=== PATIENT | male | born 1940 | race Caucasian/White ===

== ENCOUNTER 2017-10-16 23:25 | Inpatient (IN) | payer OTHER, MEDICARE ==
[~2017-10-16] VITALS: Ht 160 cm; Wt 62.6 kg
[~2017-10-16 23:25] MED LIST: ACET-1194 PO; ACET-8386 PO; ASPI81CT89 PO; DOCU-299 PO; FINA5TAB5 PO; HYDR-699 PO; METF500T PO; OMEP20TC12 PO; TAMS0.4C96 PO; YOUNGEVITY PO
[2017-10-16 23:44] VITALS: BP 126/65
--- NOTE | 2017-10-16 23:53 | NUR ---
TO ER BED 12
--- NOTE | 2017-10-16 23:55 | NUR ---
PATIENT IS A 77 Y/O MALE WHO PRESENTS TO THE ED C/O RECTAL BLEEDING. PT STATES, "I CAN'T GO TO THE BATHROOM." PT REPORTS 7/10 ACHING RECTAL PAIN THAT DOES NOT RADIATE. PT DENIES CP, SOB, N/V/D. REPORTS CONSTIPATION. PT AAOX4, RR EVEN/UNLABORED. PT REPOSITIONED FOR COMFORT, BED IN LOWEST POSITION. ER MD DR. CISNEROS NOTIFIED. WILL CONTINUE TO MONITOR.
[2017-10-17 00:27] LABS: HEMATOCRIT 48.4 % (36-52); HEMOGLOBIN 15.9 g/dL (12.0-18.0); MEAN CORPUSCULAR HEMOGLOBIN 30 pg (27-31); MEAN CORPUSCULAR HGB CONC 33 g/dL (33-37); MEAN CORPUSCULAR VOLUME 91 fL (80-94); PLATELET COUNT (AUTO) 210 K/uL (140-450); RED BLOOD CELL COUNT(AUTO) 5.32 MIL/uL (4.20-6.10); RED CELL DISTRIBUTION WIDTH 12.8 % (11.6-13.7); WHITE BLOOD COUNT (AUTO) 14.6 K/uL (4.8-10.8)
[2017-10-17] MEDS ORDERED: NACL 0.9% 1,000 ML IV ONE (00:35)
[2017-10-17 00:37] LABS: ANION GAP 14.1 (8-16); CARBON DIOXIDE 28.9 mmol/L (21-32); CHLORIDE 101 mmol/L (98-107); CREATININE 1.7 mg/dL (0.7-1.3); GLUCOSE 183 mg/dL (74-106); SODIUM SERUM 140 mmol/L (136-145); UREA NITROGEN, BLOOD 21 mg/dL (7-18)
[2017-10-17 00:38] LABS: LYMPHOCYTES % (MANUAL) 3 % (20-46); MONOCYTES % (MANUAL) 2 % (5-12)
[2017-10-17 00:44] LABS: ALBUMIN 3.9 g/dL (3.4-5.0); ASPARTATE AMINOTRANSFERASE 20 U/L (15-37)
--- NOTE | 2017-10-17 01:00 | NUR ---
CHAPERONED DR. CISNEROS FOR RECTAL EXAM, VIVEK ASHTON AT BEDSIDE.
[2017-10-17 01:34] LABS: APPEARANCE,URINE CLOUDY (CLEAR); BILIRUBIN,URINE NEGATIVE (NEGATIVE); BLOOD, URINE 2+ (NEGATIVE); COLOR,URINE YELLOW (YELLOW); LEUKOCYTE ESTERASE ,URINE NEGATIVE (NEGATIVE); NITRITE, URINE NEGATIVE (NEGATIVE); UGLUCOSE NEGATIVE (NEGATIVE)
[2017-10-17 01:51] LABS: RBC,URINE 11-20 (MOD) /HPF (0-5)
--- NOTE | 2017-10-17 01:54 | NUR ---
PATIENT RESTING AT THIS TIME. AND GRANDDAUGHTER AT BEDSIDE.
[2017-10-17] MEDS ORDERED: cefTRIAXone 1,000 MG VIAL ONE (02:04)
[2017-10-17] MEDS ORDERED: LEVOFLOXACIN 750 MG/D5W PREMIX 150 ML IV ONE (02:30)
--- NOTE | 2017-10-17 03:00 | NUR ---
NOTED REDDENED AND IRRITATED VEIN AT R HAND 18. IV REMOVED. SITE INTACT. WARM COMPRESS APPLIED. ER MD DR. CISNEROS MADE AWARE.
[2017-10-17] MEDS ORDERED: diphenhydrAMINE 50 MG/ML VIAL IVP ONE (03:30)
[2017-10-17] MEDS ORDERED: NACL 0.9% 1,000 ML IV SCH (03:33)
[2017-10-17] MEDS ORDERED: HYDROcodone/APAP 7.5/325 MG 1 TAB PO PRN (03:35)
[2017-10-17] MEDS ORDERED: ACETAMINOPHEN 325 MG TAB PO PRN (03:35)
[2017-10-17] MEDS ORDERED: ONDANSETRON 4 MG/2 ML VIAL IVP PRN (03:35)
[2017-10-17 04:01] LABS: PROTHROMBIN TIME 10.8 secs (10.8-13.4)
[2017-10-17 04:07] LABS: FREE T4 (FREE THYROXINE) 0.95 ng/dL (0.76-1.46); MAGNESIUM 2.4 mg/dL (1.8-2.4); PHOSPHORUS 3.3 mg/dL (2.5-4.9); THYROID STIMULATING HORMONE 1.36 uIU/mL (0.34-3.74)
--- NOTE | 2017-10-17 04:13 | NUR ---
Patient will be admitted to care of DR. SAUCEDO. Admited to TELE OBS. Will go to room 112B. Belongings list completed. Report to LORENZO ASHTON.
[2017-10-17] MEDS ORDERED: DEXTROSE 50% 50 ML SYR IVP PRN ×2 (04:30→23:30)
[2017-10-17] MEDS ORDERED: INSULIN LISPRO SLIDING SCALE 100 UNITS/ML VIAL SUBQ PRN ×2 (04:30→23:30)
--- NOTE | 2017-10-17 04:30 | NUR ---
PT ARRIVED VIA GURNEY. RECEIVED REPORT FROM ER NURSE. PT IS TAMAZIGHT SPEAKING, ALERT/ORIENTED X4, PT IS ON ROOM AIR. 20G IV TO LEFT HAND, SALINE LOCKED. PT AMBULATES BUT GAIT IS A BIT WEAK. PT SKIN IS INTACT. UPDATED BOARD. PT STATES HE WANTS TO GO TO RESTROOM AND GOES IN. PT IN STABLE CONDITION, NO SIGNS OF DISTRESS NOTED. BED IN LOWEST POSITION, CALL LIGHT WITHIN REACH. WILL CONTINUE TO MONITOR.
--- NOTE | 2017-10-17 04:55 | NUR ---
PT STILL IN RESTROOM, UNABLE TO TAKE VITAL SIGNS DUE TO FACT.
--- NOTE | 2017-10-17 05:00 | NUR ---
PT BLOOD PRESSURE IS 175/92, INFORMED DR JONES, HE SAID HE WOULD FIGURE OUT WHAT TO DO WITH MEDICATIONS.
--- NOTE | 2017-10-17 05:25 | NUR ---
DR JONES NOW TAKING PT HISTORY AND PERFORMING EXAM.
[2017-10-17 06:12] VITALS: BP 175/86
[2017-10-17] MEDS ORDERED: BISACODYL 5 MG TABEC PO SCH ×3 (06:45→23:00)
[2017-10-17] MEDS: BLOOD GLUCOSE MONITORING 1 DEV DEV FS SCH ×4 (06:46→21:00)
[2017-10-17] MEDS ORDERED: HYDROcodone/APAP 5/325 MG 1 TAB TAB PO SCH (06:50)
--- NOTE | 2017-10-17 07:20 | NUR ---
RECEIVED PATIENT FROM NIGHTSHIFT NURSE AT BEDSIDE. PATIENT IS AWAKE AT THIS TIME. PATIENT SHOWS NO SIGNS OF PAIN AT THIS TIME. PATIENT'S RESPIRATIONS ARE EVEN AND SYMMETRICAL, AND UNLABORED. INSTRUCTED PATIENT TO CALL IF HE NEEDS HELP WITH ANYTHING. CALL LIGHT WITHIN REACH OF PATIENT. IV NOTED ON L HAND 20 G WITH 50 ML OF NORMAL SALINE INFUSING. UPDATED BOARD IN PATIENTS ROOM WITH CONTACT INFORMATION. WILL CONTINUE TO MONITOR PATIENT.
--- NOTE | 2017-10-17 07:31 | NUR ---
ENDORSED PT IN STABLE CONDITION TO DAY SHIFT NURSE FOR CONTINUITY OF CARE.
[2017-10-17 08:00] VITALS: BP 132/93
[2017-10-17] MEDS ORDERED: ACETAMINOPHEN EXTRA STRENGTH 500 MG TAB PO PRN (08:18)
[2017-10-17] MEDS ORDERED: DOCUSATE SODIUM 100 MG GELCAP PO PRN (08:19)
[2017-10-17] MEDS ORDERED: METOPROLOL SUCCINATE 50 MG TABER PO SCH (09:00)
[2017-10-17] MEDS ORDERED: [UNRECOGNIZED DRUG - OTHER] PO SCH (09:00)
[2017-10-17] MEDS ORDERED: NON-FORMULARY ITEM (Omeprazole (Omeprazole) 1 TAB) PO SCH (09:00)
[2017-10-17] MEDS ORDERED: ASPIRIN 81 MG TAB.CHEW PO SCH (09:00)
--- NOTE | 2017-10-17 09:06 | NUR ---
PATIENT HAS BEEN SCREENED AND CATEGORIZED HIGH NUTRITION RISK. PATIENT WILL BE SEEN WITHIN 1-2 DAYS OF ADMISSION. 10/17/18-10/18/[address]
[2017-10-17] MEDS: FINASTERIDE 5 MG TAB PO SCH (09:14)
[2017-10-17] MEDS: PANTOPRAZOLE 40 MG TABEC PO SCH (09:14)
[2017-10-17] MEDS: DOCUSATE SODIUM 100 MG GELCAP PO SCH ×2 (09:15→22:28)
[2017-10-17] MEDS: TAMSULOSIN 0.4 MG CAP PO SCH (09:15)
[2017-10-17] MEDS: HYDROCHLOROTHIAZIDE 25 MG TAB PO SCH (09:16)
--- NOTE | 2017-10-17 10:00 | NUR ---
PATIENT RESTING IN BED AT THIS TIME. PATIENT USING URINAL TO VOID. NO SIGNS OF RESPIRATORY DISTRESS OR RESPIRATORY DEPRESSION. WILL CONTINUE TO MONITOR PATIENT.
[2017-10-17 12:00] VITALS: BP 139/73
--- NOTE | 2017-10-17 12:00 | NUR ---
PATIENT IS RESTING AT THIS TIME. PATIENT'S FAMILY IS AT BEDSIDE. NO SIGNS OF PAIN OR RESPIRATORY DISTRESS OR RESPIRATORY DEPRESSION. WILL CONTINUE TO MONITOR PATIENT.
[2017-10-17 12:33] LABS: HEMOGLOBIN 16.6 g/dL (12.0-18.0); LYMPHOCYTES % (AUTO) 11.4 % (20.5-51.1); MEAN CORPUSCULAR HEMOGLOBIN 30 pg (27-31); MEAN CORPUSCULAR HGB CONC 33 g/dL (33-37); MEAN CORPUSCULAR VOLUME 92 fL (80-94); NEUTROPHILS % (AUTO) 79.1 % (42.2-75.2); PLATELET COUNT (AUTO) 195 K/uL (140-450); RED BLOOD CELL COUNT(AUTO) 5.52 MIL/uL (4.20-6.10); RED CELL DISTRIBUTION WIDTH 12.8 % (11.6-13.7); WHITE BLOOD COUNT (AUTO) 11.6 K/uL (4.8-10.8)
[2017-10-17 12:34] LABS: BASOPHILS # (AUTO) 0.5 K/uL (0.00-0.22); BASOPHILS % (AUTO) 4.7 % (0.0-2.0); LYMPHOCYTES # (AUTO) 1.3 K/uL (2.0-11.5); MONOCYTES # (AUTO) 0.6 K/uL (0.8-1.0); MONOCYTES % (AUTO) 4.8 % (1.7-9.3); NEUTROPHILS # (AUTO) 9.2 K/uL (1.8-7.7)
--- NOTE | 2017-10-17 12:48 | NUR ---
FAXED INITIAL REVIEW TO [facility] [phone] PHONE [phone] X JO ANN Burris
--- NOTE | 2017-10-17 13:50 | NUR ---
PATIENT AWAKE AT THIS TIME. NO SIGNS OF PAIN AT THIS TIME. WILL CONTINUE TO MONITOR PATIENT.
--- NOTE | 2017-10-17 14:52 | NUR ---
10/17/2017 RD INITIAL ASSESSMENT COMPLETED PLEASE REFER TO NUTRITION ASSESSMENT UNDER CARE ACTIVITY FOR ESTIMATED NUTRITIONAL NEEDS. CONTINUE ANTIHYPERGLYCEMIC MEDS AND CCHO 60 GM DIET FOR GLUCOSE CONTROL. RD TO FOLLOW-UP IN 2-3 DAYS PATIENT IS HIGH RISK. FAUSTO AGUILAR, RD
--- NOTE | 2017-10-17 15:00 | NUR ---
PATIENT IS ASLEEP AT THIS TIME. BREATHING IS SYMMETRICAL, EVEN, AND UNLABORED. WILL CONTINUE TO MONITOR PATIENT.
[2017-10-17 16:00] VITALS: BP 117/58
[2017-10-17] MEDS ORDERED: MAGNESIUM CITRATE 300 ML BTL PO SCH ×2 (17:30→23:00)
--- NOTE | 2017-10-17 17:30 | NUR ---
PATIENT IS AWAKE WITH BREATHING EVEN AND UNLABORED. NO SIGNS OF PAIN. WILL CONTINUE TO MONITOR PATIENT.
--- NOTE | 2017-10-17 19:22 | NUR ---
PATIENT RECEIVED 300 ML OF NORMAL SALINE. GAVE REPORT TO NIGHTSHIFT NURSE AT BEDSIDE. ENDORSED CARE TO NURSE. PATIENT IS IN STABLE CONDITION.
--- NOTE | 2017-10-17 19:23 | NUR ---
RECEIVED HANDOFF REPORT FROM AM RN. PATIENT A&OX4. PATIENT DENIES PAIN. PATIENT RESTING IN BED. IV SITE PATENT AND INTACT. NO SIGNS OR SYMPTOMS OF ACUTE DISTRESS NOTED. SAFETY MEASURES ENSURED. CALL LIGHT WITHIN REACH. WILL CONTINUE TO MONITOR.
[2017-10-17 20:00] VITALS: BP 109/53
[2017-10-17] MEDS ORDERED: DOCUSATE SODIUM 100 MG GELCAP PO SCH (22:15)
--- NOTE | 2017-10-17 22:15 | NUR ---
PM MEDSD GIVEN WITH EDUCATION. PATIENT TOLERATED WELL. NO SIGNS OR SYMPTOMS OF ACUTE DISTRESS NOTED. CALL LIGHT WITHIN REACH. WILL CONTINUE TO MONITOR.
[2017-10-17] MEDS: CLOTRIMAZOLE 1% 30 GM CRM TUBE TP SCH (22:36)
[2017-10-18] VITALS: BP 119/72
[2017-10-18 04:00] VITALS: BP 108/63
[2017-10-18 06:04] LABS: HEMOGLOBIN 16.3 g/dL (12.0-18.0); MEAN CORPUSCULAR HEMOGLOBIN 30 pg (27-31); MEAN CORPUSCULAR HGB CONC 33 g/dL (33-37); MEAN CORPUSCULAR VOLUME 92 fL (80-94); PLATELET COUNT (AUTO) 197 K/uL (140-450); RED BLOOD CELL COUNT(AUTO) 5.45 MIL/uL (4.20-6.10); RED CELL DISTRIBUTION WIDTH 12.7 % (11.6-13.7)
[2017-10-18 06:16] LABS: ANION GAP 13.3 (8-16); CARBON DIOXIDE 28.5 mmol/L (21-32); CHLORIDE 102 mmol/L (98-107); CREATININE 1.6 mg/dL (0.7-1.3); GLUCOSE 115 mg/dL (74-106); POTASSIUM 3.8 mmol/L (3.5-5.1); SODIUM SERUM 140 mmol/L (136-145); UREA NITROGEN, BLOOD 18 mg/dL (7-18)
[2017-10-18 06:19] LABS: MAGNESIUM 2.7 mg/dL (1.8-2.4); PHOSPHORUS 4.1 mg/dL (2.5-4.9)
[2017-10-18] MEDS: BLOOD GLUCOSE MONITORING 1 DEV DEV FS SCH ×2 (06:35→11:30)
[2017-10-18 06:41] LABS: LYMPHOCYTES % (MANUAL) 14 % (20-46); MONOCYTES % (MANUAL) 3 % (5-12)
[2017-10-18] MEDS ORDERED: MIDAZOLAM 2 MG/2 ML VIAL ONE ×2 (06:52)
[2017-10-18] MEDS ORDERED: fentaNYL 0.05 MG/ML VIAL ONE (06:52)
[2017-10-18] MEDS ORDERED: diphenhydrAMINE 50 MG/ML VIAL ONE (06:52)
--- NOTE | 2017-10-18 07:11 | NUR ---
PATIENT OFF UNIT TO OR
--- NOTE | 2017-10-18 07:30 | NUR ---
ENDORSED PLAN OF CARE TO AM RN. PATIENT IN STABLE.
--- NOTE | 2017-10-18 07:31 | NUR ---
RECEIVED REPORT FROM PERSONAL INJURY ATTORNEY NURSE IRVING FOR CONTINUITY OF CARE. PT OFF UNIT FOR COLONOSCOPY. UPDATED BOARD.
[2017-10-18 08:00] VITALS: BP 124/48
--- NOTE | 2017-10-18 08:00 | NUR ---
PT BACK FROM COLONOSCOPY. RECEIVED REPORT FROM RN. PT IN STABLE CONDITION.
[2017-10-18] MEDS ORDERED: MIDAZOLAM 2 MG/2 ML VIAL IVP ONE (08:30)
[2017-10-18] MEDS ORDERED: fentaNYL 0.05 MG/ML VIAL IVP ONE (08:30)
[2017-10-18] MEDS ORDERED: TAMSULOSIN 0.4 MG CAP PO SCH (08:40)
[2017-10-18] MEDS ORDERED: PANTOPRAZOLE 40 MG TABEC PO SCH (08:40)
[2017-10-18] MEDS ORDERED: LISINOPRIL 20 MG TAB PO SCH ×2 (09:00→09:15)
[2017-10-18] MEDS ORDERED: LACTOBACILLUS RHAMNOSUS GG 1 EACH CAP PO SCH ×2 (09:00→11:00)
[2017-10-18] MEDS: PANTOPRAZOLE 40 MG TABEC PO SCH (09:14)
[2017-10-18] MEDS: TAMSULOSIN 0.4 MG CAP PO SCH (09:15)
[2017-10-18] MEDS ORDERED: FINASTERIDE 5 MG TAB PO SCH (09:15)
[2017-10-18] MEDS ORDERED: DOCUSATE SODIUM 100 MG GELCAP PO SCH (09:15)
[2017-10-18] MEDS ORDERED: HYDROCHLOROTHIAZIDE 25 MG TAB PO SCH (09:15)
[2017-10-18] MEDS: DOCUSATE SODIUM 100 MG GELCAP PO SCH (09:37)
[2017-10-18] MEDS: HYDROCHLOROTHIAZIDE 25 MG TAB PO SCH (09:38)
[2017-10-18] MEDS: FINASTERIDE 5 MG TAB PO SCH (09:38)
[2017-10-18] MEDS: CLOTRIMAZOLE 1% 30 GM CRM TUBE TP SCH (09:40)
[2017-10-18] MEDS: LIDOCAINE 2% 100 MG/5 ML UJET TP SCH ×2 (11:00→13:00)
[2017-10-18 12:00] VITALS: BP 130/67
--- NOTE | 2017-10-18 13:00 | NUR ---
PT GOT UP OUT OF BED WITH P/T. AMBULATED WITH STEADY GAIT USING FWW.
[2017-10-18] MEDS ORDERED: LACT10CA PO (13:01)
[2017-10-18] MEDS ORDERED: CALC625T27 PO (13:01)
[2017-10-18] MEDS ORDERED: NITR2OIN30 TP (13:06)
[2017-10-18] MEDS ORDERED: [UNRECOGNIZED DRUG - OTHER] TP (13:06)
[2017-10-18] MEDS ORDERED: SULF-58 PO (13:15)
--- NOTE | 2017-10-18 15:00 | NUR ---
STOPPED IV OF NS INFUSION. D/C IV TO L HAND 20G. IV CATHETER TIP INTACT. APPLIED DRESSING AND PRESSURE TO SITE NOT BLEEDING NOTED.
--- NOTE | 2017-10-18 15:05 | NUR ---
PT D/C TO GO HOME. GAVE D/C FORMS, INSTRUCTIONS, RX, FOLLOW UP APPOINTMENT, AND LABS TO PT AND PT'S DAUGHTER KIM WHO SIGNED FORMS. KIM AND PT VERBALIZED UNDERSTANDING. REMOVED TELE MONITOR AND ID BANDS. PT CHANGED IN OWN CLOTHES AND LEFT WITH ALL PERSONAL BELONGINGS. PT LEFT UNIT VIA WHEELCHAIR ACCOMPANIED BY STUDENT AND FAMILY MEMBERS. PT LEFT IN STABLE CONDITION.
[2017-10-18] MEDS ORDERED: NITROGLYCERIN 2% 1 GM PKT TP SCH (21:00)
--- NOTE | 2017-10-22 13:59 | NUR ---
Faxed discharge summary to [facility] [phone]
== END 2017-10-18 15:05 | disposition home or self-care (01) | DRG 720 ==
LOC: MED 23:25 → MTU 10-17 03:33 → UNDOADMOB 10-17 03:33 → MTU 10-17 03:33 → UNDOADMOB 10-17 03:58 → MTU 10-17 03:58 → INTOOBSV 10-17 09:58 → OBSVTOIN 10-17 09:58
PROVIDERS: ADMIT Student in an Organized Health Care Education/Training Program; ATTEND Student in an Organized Health Care Education/Training Program
PROC: 0DJD8ZZ Inspection of Lower Intestinal Tract, Via Natural or Artificial Opening Endoscopic (ICD-10-PCS; principal; 2017-10-18 07:15)
DX: A41.9 Sepsis, unspecified organism (principal); N17.0 Acute kidney failure with tubular necrosis; K85.90 Acute pancreatitis without necrosis or infection, unspecified; D68.59 Other primary thrombophilia; E86.0 Dehydration; E11.51 Type 2 diabetes mellitus with diabetic peripheral angiopathy without gangrene; C18.9 Malignant neoplasm of colon, unspecified; I10 Essential (primary) hypertension; K21.9 Gastro-esophageal reflux disease without esophagitis; K59.00 Constipation, unspecified; N39.0 Urinary tract infection, site not specified; K57.90 Diverticulosis of intestine, part unspecified, without perforation or abscess without bleeding; K60.2 Anal fissure, unspecified; Z88.1 Allergy status to other antibiotic agents; Z79.84 Long term (current) use of oral hypoglycemic drugs; Z79.82 Long term (current) use of aspirin; Z79.899 Other long term (current) drug therapy; Z90.49 Acquired absence of other specified parts of digestive tract; N40.1 Benign prostatic hyperplasia with lower urinary tract symptoms; R33.8 Other retention of urine
CPT/HCPCS: 36415; 70450; 71045; 80048; 80053; 81001; 82140; 82150; 82272; 82948; 83036; 83605; 83690; 83735; 83880; 84100; 84439; 84443; 84484; 85025; 85610; 85730; 87040; 87081; 87086; 87186; 93005; 93925; 93970; 96361; 96365; 96367; 96375; 97110; 97116; 97140; 97530; 99285; C1758; J0696; J1200; J1815; J1956; J2250; J3010; J7030; J7060; Q0092

== ENCOUNTER 2019-04-17 22:41 | Emergency (ER) | payer MEDICARE, OTHER ==
[~2019-04-17] VITALS: Ht 165.1 cm; Wt 60.8 kg
[~2019-04-17 22:41] MED LIST changes: -ACET-1194 PO; -ACET-8386 PO; +ASPI-1718 PO; -ASPI81CT89 PO; +CALC625T27 PO; +LACT10CA PO; +NITR2OIN30 TP; +SULF-58 PO; +[UNRECOGNIZED DRUG - OTHER] TP
[2019-04-17 22:45] VITALS: BP 146/82
--- NOTE | 2019-04-17 22:50 | NUR ---
TO LOBBY A/W BED AMBULATORY
--- NOTE | 2019-04-18 00:12 | NUR ---
79 Y/O MALE PRESENTS TO ED WITH C/O RIGHT ARM, RIGHT RIB, AND RIGHT KNEE PAIN. PT STATES FALLING WHILE GETTING OFF THE BUS TODAY. DENIES HITTING HEAD. NO BLOOD THINNERS. 6/10 TOLLERABLE PAIN. NO REDNESS, NO BRUSING, NO DEFORMITY NOTED. CMS INTACT IN ALL 4 EXTREMITIES. AMBULATES WITH STRONG STEADY GAIT. FAMILY AT BEDSIDE. VSS. ER MD AWARE. CONTINUE TO MONITOR.
--- NOTE | 2019-04-18 00:12 | NUR ---
PT TAKEN TO BED 7
[2019-04-18] MEDS ORDERED: ACETAMINOPHEN 325 MG TAB PO ONE (01:55)
[2019-04-18 03:48] VITALS: BP 123/77
--- NOTE | 2019-04-18 03:48 | NUR ---
PT DISCHARGED WITH PAPERWORK. RX LIDODERM TRANSDERMAL PATCH. EDUCATED PT REGARDING MEDICATION AND S/E. EDUCATED PT REGARDING D/C DIAGNOSIS. PT VERBALIZED UNDERSTANDING OF TEACHING. TOLD PT TO FOLLOW UP WITH PCP AND WHEN TO RETURN TO ED. PT VSS, DENIES ANY PAIN. ALL QUESTIONS ANSWERED.
== END 2019-04-18 03:48 | disposition home or self-care (01) ==
LOC: MED 22:41
DX: S20.211A Contusion of right front wall of thorax, initial encounter (principal); M25.561 Pain in right knee; E11.9 Type 2 diabetes mellitus without complications; K21.9 Gastro-esophageal reflux disease without esophagitis; I10 Essential (primary) hypertension; Z79.82 Long term (current) use of aspirin; Z79.84 Long term (current) use of oral hypoglycemic drugs; Z79.899 Other long term (current) drug therapy; Z88.1 Allergy status to other antibiotic agents; Z85.038 Personal history of other malignant neoplasm of large intestine; Z85.46 Personal history of malignant neoplasm of prostate; W01.0XXA Fall on same level from slipping, tripping and stumbling without subsequent striking against object, initial encounter; Y93.89 Activity, other specified; Y92.811 Bus as the place of occurrence of the external cause; Y99.8 Other external cause status
CPT/HCPCS: 71101; 73562; 99283

== ENCOUNTER 2019-06-28 19:06 | Emergency (ER) | payer MEDICARE, OTHER ==
[~2019-06-28] VITALS: Ht 165.1 cm; Wt 58.5 kg
--- NOTE | 2019-06-28 19:10 | NUR ---
TO BED # 12 AMBULATORY
[2019-06-28 19:15] VITALS: BP 142/78
--- NOTE | 2019-06-28 19:36 | NUR ---
PT C/O PAINFUL URINATION AND DRIBBLING X2 WEEKS. PT DENIES FLANK PAIN. DENIES FEVER. DENIES ABD PAIN. PT SITTING IN BED CALM AND PLEASANT. VSS. MEDHX: DM, HTN ALLERGIES: DENIES
--- NOTE | 2019-06-28 21:00 | NUR ---
PT RESTING IN BED CALM AND PLEASANT. BED LOCKED AND IN LOW POSITON. VSS. WILL CONTINUE TO MONITOR.
[2019-06-28 21:30] LABS: EOSINOPHILS % (AUTO) 0.5 % (0.0-4.0); HEMATOCRIT 46.8 % (36-52); HEMOGLOBIN 15.7 g/dL (12.0-18.0); LYMPHOCYTES # (AUTO) 1.6 K/uL (2.0-11.5); LYMPHOCYTES % (AUTO) 31.2 % (20.5-51.1); MEAN CORPUSCULAR HEMOGLOBIN 31 pg (27-31); MEAN CORPUSCULAR HGB CONC 34 g/dL (33-37); MEAN CORPUSCULAR VOLUME 93.6 fL (80-94); MONOCYTES # (AUTO) 0.4 K/uL (0.8-1.0); MONOCYTES % (AUTO) 8.6 % (1.7-9.3); NEUTROPHILS % (AUTO) 58.7 % (42.2-75.2); PLATELET COUNT (AUTO) 240 K/uL (140-450); RED CELL DISTRIBUTION WIDTH 13.3 % (11.6-13.7); WHITE BLOOD COUNT (AUTO) 5.1 K/uL (4.8-10.8)
[2019-06-28 21:36] LABS: APPEARANCE,URINE CLEAR (CLEAR); BILIRUBIN,URINE NEGATIVE (NEGATIVE); BLOOD, URINE NEGATIVE (NEGATIVE); COLOR,URINE YELLOW (YELLOW); LEUKOCYTE ESTERASE ,URINE NEGATIVE (NEGATIVE); NITRITE, URINE NEGATIVE (NEGATIVE); UGLUCOSE NEGATIVE (NEGATIVE)
[2019-06-28 21:45] LABS: CARBON DIOXIDE 28.8 mmol/L (21-32); CHLORIDE 103 mmol/L (98-107); CREATININE 1.3 mg/dL (0.7-1.3); GLUCOSE 70 mg/dL (74-106); POTASSIUM 3.8 mmol/L (3.5-5.1); SODIUM SERUM 141 mmol/L (136-145); UREA NITROGEN, BLOOD 24 mg/dL (7-18)
--- NOTE | 2019-06-28 22:25 | NUR ---
PT AMBULATED TO RESTROOM
--- NOTE | 2019-06-28 22:35 | NUR ---
PT BLADDER SCANNED, POST VOID RESIDUAL WAS 247. MADE AWARE.
[2019-06-28 23:20] VITALS: BP 150/79
--- NOTE | 2019-06-28 23:21 | NUR ---
Patient discharged with v/s stable. Written and verbal after care instructions given and explained. Patient alert, oriented and verbalized understanding of instructions. Ambulatory with to home. All questions addressed prior to discharge. ID band removed. Patient advised to follow up with PMD. Rx of PYRIDIUM 100MG given. Patient educated on indication of medication including possible reaction and side effects. Opportunity to ask questions provided and answered.
== END 2019-06-28 23:20 | disposition home or self-care (01) ==
LOC: MED 19:06
DX: R39.15 Urgency of urination (principal); R10.30 Lower abdominal pain, unspecified; E11.9 Type 2 diabetes mellitus without complications; K21.9 Gastro-esophageal reflux disease without esophagitis; I10 Essential (primary) hypertension; Z79.2 Long term (current) use of antibiotics; Z79.82 Long term (current) use of aspirin; Z79.899 Other long term (current) drug therapy; Z88.1 Allergy status to other antibiotic agents
CPT/HCPCS: 36415; 80048; 81003; 85025; 99283

== ENCOUNTER 2019-11-04 18:52 | Emergency (ER) | payer MEDICARE, OTHER ==
[~2019-11-04] VITALS: Ht 165.1 cm; Wt 61.7 kg
[~2019-11-04 18:52] MED LIST changes: -ASPI-1718 PO; +ASPI-1822 PO
[2019-11-04 19:03] VITALS: BP 169/81
[2019-11-04 19:32] LABS: APPEARANCE,URINE CLEAR (CLEAR); BILIRUBIN,URINE NEGATIVE (NEGATIVE); BLOOD, URINE 3+ (NEGATIVE); COLOR,URINE YELLOW (YELLOW); LEUKOCYTE ESTERASE ,URINE 2+ (NEGATIVE); NITRITE, URINE POSITIVE (NEGATIVE); PH,URINE 7.5 (5.0-9.0); UGLUCOSE TRACE (NEGATIVE)
[2019-11-04 19:36] LABS: RBC,URINE TOO NUMEROUS TO COUN /HPF (0-5); WBC,URINE 0-5 /HPF (0-5)
[2019-11-04 19:50] LABS: BASOPHILS # (AUTO) 0.1 K/uL (0.00-0.22); BASOPHILS % (AUTO) 2.6 % (0.0-2.0); EOSINOPHILS # (AUTO) 0.1 K/uL (0-0.4); EOSINOPHILS % (AUTO) 2.8 % (0.0-4.0); HEMATOCRIT 44.5 % (36-52); HEMOGLOBIN 14.8 g/dL (12.0-18.0); LYMPHOCYTES # (AUTO) 1.3 K/uL (2.0-11.5); LYMPHOCYTES % (AUTO) 42.6 % (20.5-51.1); MEAN CORPUSCULAR HEMOGLOBIN 31 pg (27-31); MEAN CORPUSCULAR HGB CONC 33 g/dL (33-37); MEAN CORPUSCULAR VOLUME 94.3 fL (80-94); MONOCYTES # (AUTO) 0.3 K/uL (0.8-1.0); MONOCYTES % (AUTO) 9.2 % (1.7-9.3); NEUTROPHILS # (AUTO) 1.3 K/uL (1.8-7.7); NEUTROPHILS % (AUTO) 42.8 % (42.2-75.2); PLATELET COUNT (AUTO) 219 K/uL (140-450); RED BLOOD CELL COUNT(AUTO) 4.72 MIL/uL (4.20-6.10); RED CELL DISTRIBUTION WIDTH 13.4 % (11.6-13.7); WHITE BLOOD COUNT (AUTO) 3.1 K/uL (4.8-10.8)
[2019-11-04 19:58] LABS: ANION GAP 6.4 (8-16); CARBON DIOXIDE 35.7 mmol/L (21-32); CHLORIDE 105 mmol/L (98-107); CREATININE 1.5 mg/dL (0.6-1.3); GLUCOSE 135 mg/dL (74-106); POTASSIUM 4.1 mmol/L (3.5-5.1); SODIUM SERUM 143 mmol/L (136-145); UREA NITROGEN, BLOOD 14 mg/dL (7-18)
[2019-11-04 20:26] VITALS: BP 159/79
== END 2019-11-04 20:26 | disposition home or self-care (01) ==
LOC: MED 18:52
DX: N39.0 Urinary tract infection, site not specified (principal); I51.9 Heart disease, unspecified; E11.9 Type 2 diabetes mellitus without complications; K21.9 Gastro-esophageal reflux disease without esophagitis; I10 Essential (primary) hypertension; Z79.899 Other long term (current) drug therapy; Z88.1 Allergy status to other antibiotic agents; Z79.82 Long term (current) use of aspirin; Z79.84 Long term (current) use of oral hypoglycemic drugs
CPT/HCPCS: 36415; 80048; 81001; 85025; 85610; 85730; 87086; 87186; 99283

== ENCOUNTER 2020-08-14 22:15 | Emergency (ER) | payer MEDICARE, OTHER ==
[~2020-08-14] VITALS: Ht 162.6 cm; Wt 61.7 kg
[2020-08-14 22:30] VITALS: BP 158/73
--- NOTE | 2020-08-14 22:30 | NUR ---
80 Y/O MALE BIBA C/O COVID SYMPTOMS - SOB , FATIGUE , LOSS OF APPETITE . PT FAMILY MEMBERS TESTED + COVID. PT TESTED ON FRIDAY - RESULTS PENDING. PT A/O X 3, RR EVEN AND UNLABORED. LUNG SOUNDS BL CLEAR. PT IN TENT. VSS. NO ACUTE DISTRESS . ERMD MADE AWARE OF PT STATUS. PMH: DM, HTN AX : LEVOFLOXACIN
--- NOTE | 2020-08-14 22:47 | NUR ---
PT PIERRE OSUNA. TAKEN TO OF TENT
--- NOTE | 2020-08-14 23:00 | NUR ---
RICHARD DELGADO & CHEYANNE, FLU & RSV SWABS COLLECTED AND HANDED TO LAB.
--- NOTE | 2020-08-14 23:17 | NUR ---
EKG PERFORMED IN TRIAGE TENT WITH SCREENS. EKG READS SINUS RHYTHM @ 76
[2020-08-14 23:59] LABS: BASOPHILS % (AUTO) 0.8 % (0.0-2.0); EOSINOPHILS # (AUTO) 0.1 K/uL (0-0.4); EOSINOPHILS % (AUTO) 1.1 % (0.0-4.0); HEMATOCRIT 45.7 % (36-52); HEMOGLOBIN 15.4 g/dL (12.0-18.0); LYMPHOCYTES # (AUTO) 1.1 K/uL (2.0-11.5); LYMPHOCYTES % (AUTO) 21.3 % (20.5-51.1); MEAN CORPUSCULAR HEMOGLOBIN 31 pg (27-31); MEAN CORPUSCULAR HGB CONC 34 g/dL (33-37); MEAN CORPUSCULAR VOLUME 91.8 fL (80-94); MONOCYTES # (AUTO) 0.9 K/uL (0.8-1.0); MONOCYTES % (AUTO) 16.4 % (1.7-9.3); NEUTROPHILS # (AUTO) 3.2 K/uL (1.8-7.7); NEUTROPHILS % (AUTO) 60.4 % (42.2-75.2); PLATELET COUNT (AUTO) 424 K/uL (140-450); RED BLOOD CELL COUNT(AUTO) 4.98 MIL/uL (4.20-6.10); RED CELL DISTRIBUTION WIDTH 13.8 % (11.6-13.7); WHITE BLOOD COUNT (AUTO) 5.2 K/uL (4.8-10.8)
--- NOTE | 2020-08-15 00:21 | NUR ---
PT PROVIDED URINAL WITH PRIVACY SCREEN AND THIS TIME.
[2020-08-15 00:31] LABS: ALBUMIN 3.2 g/dL (3.4-5.0); ANION GAP 10.4 (8-16); ASPARTATE AMINOTRANSFERASE 48 U/L (15-37); CARBON DIOXIDE 30.7 mmol/L (21-32); CHLORIDE 104 mmol/L (98-107); CREATININE 1.3 mg/dL (0.6-1.3); GLUCOSE 127 mg/dL (74-106); POTASSIUM 4.1 mmol/L (3.5-5.1); SODIUM SERUM 141 mmol/L (136-145); TOTAL BILIRUBIN 0.6 mg/dL (0.0-1.0); UREA NITROGEN, BLOOD 20 mg/dL (7-18)
[2020-08-15 00:47] LABS: RSV NEGATIVE (NEGATIVE)
[2020-08-15 00:52] LABS: PROTHROMBIN TIME 10.3 secs (10.8-13.4)
[2020-08-15 00:53] LABS: LACTATE DEHYDROGENASE 309 U/L (85-227)
[2020-08-15 01:08] LABS: C-REACTIVE PROTEIN QUANT 2.7 mg/dL (0.0-0.9)
[2020-08-15 01:14] LABS: APPEARANCE,URINE CLEAR (CLEAR); BILIRUBIN,URINE NEGATIVE (NEGATIVE); BLOOD, URINE NEGATIVE (NEGATIVE); COLOR,URINE YELLOW (YELLOW); LEUKOCYTE ESTERASE ,URINE NEGATIVE (NEGATIVE); NITRITE, URINE NEGATIVE (NEGATIVE); UGLUCOSE NEGATIVE (NEGATIVE)
--- NOTE | 2020-08-15 01:30 | NUR ---
PT PROVIDED URINAL AND PRIVACY AT THIS TIME.
[2020-08-15 02:21] LABS: HYALINE CASTS, URINE 0-3 /LPF (None Seen); RBC,URINE 0-5 /HPF (0-5); WBC,URINE 0-5 /HPF (0-5)
--- NOTE | 2020-08-15 02:30 | NUR ---
PT - [facility] , PT PLACED IN LOBBY FOR COMFORT.
[2020-08-15 04:30] VITALS: BP 136/88
--- NOTE | 2020-08-17 01:01 | NUR ---
POSITIVE COVID + RESULTS RECEIVED FROM LAB. A COPY OF TEST RESULTS GIVEN TO INFECTION CONTROL.
== END 2020-08-15 04:30 | disposition home or self-care (01) ==
LOC: MED 22:15
DX: R53.1 Weakness (principal); J18.9 Pneumonia, unspecified organism; E11.9 Type 2 diabetes mellitus without complications; K21.9 Gastro-esophageal reflux disease without esophagitis; I10 Essential (primary) hypertension; Z79.84 Long term (current) use of oral hypoglycemic drugs; Z79.82 Long term (current) use of aspirin; Z88.1 Allergy status to other antibiotic agents; Z79.899 Other long term (current) drug therapy; Z85.038 Personal history of other malignant neoplasm of large intestine; Z85.46 Personal history of malignant neoplasm of prostate
CPT/HCPCS: 36415; 36600; 71045; 80053; 81001; 82550; 82728; 82803; 83605; 83615; 83880; 84484; 85025; 85379; 85384; 85610; 85730; 86140; 87040; 87420; 87426; 87804; 93005; 99285; U0003